=== PATIENT | female | born 1975 | race Caucasian/White ===

== ENCOUNTER 2019-03-11 18:29 | Inpatient (IN) ==
[2019-03-11] MEDS ORDERED: Tdap (Boostrix) Vaccine 0.5 ML SYRINGE IM ONE (19:47)
[2019-03-11 20:06] LABS: Bilirubin,Urine Negative (Negative); Blood,Urine Negative (Negative); Clarity,Urine Cloudy (Clear); Color,Urine Yellow (Yellow); Glucose,Urine (UA) Normal (Normal); Ketones,Urine Negative (Negative); Leukocyte Esterase,Urine Negative (Negative); Nitrite,Urine Negative (Negative); PH,Urine 7.5 pH Units (5.0-8.0); Protein,Urine Trace mg/dL (Neg-Trace); Specific Gravity,Urine 1.026 (1.010-1.025); Urobilinogen,Urine Normal (Normal)
[2019-03-11 20:17] LABS: Amphetamine Screen,Urine Negative ng/mL (Cutoff=1000); Barbiturate Screen,Urine Negative ng/mL (Cutoff=200); Benzodiazepines Screen,Urine Negative ng/mL (Cutoff=200); Cannabinoid Screen,Urine Negative ng/mL (Cutoff = 50); Cocaine Screen,Urine Positive ng/mL (Cutoff= 300); Opiate Screen,Urine Negative ng/mL (Cutoff=300); Phencyclidine Screen,Urine Negative ng/mL (Cutoff=25)
[2019-03-11 20:20] LABS: Bacteria,Urine Moderate per hpf (None-Few); Squamous Epithelial Cell,Urine Moderate per lpf (None-Few); WBC,Urine 0-3 per hpf (0-3)
[2019-03-11 20:44] LABS: Basophils # 0.1 K/mcL (0.0-0.2); Basophils % 0.5 %; Eosinophils # 0.2 K/mcL (0.0-0.6); Eosinophils % 1.3 %; Hematocrit 44.2 % (35.3-44.9); INR 0.9; Immature Granulocytes % 0.4 % (0-4); Lymphocytes # 2.6 K/mcL (0.6-4.6); Lymphocytes % 21.5 %; Mean Corpuscular HGB Conc 33.9 g/dL (31.6-35.5); Mean Corpuscular Hemoglobin 32.7 pg (28.0-33.3); Mean Corpuscular Volume 96.3 fL (83.0-100.0); Monocytes # 0.9 K/mcL (0.0-1.3); Monocytes % 7.6 %; Neutrophils # 8.2 K/mcL (1.6-8.9); Platelet Count 233 K/mcL (140-400); Prothrombin Time 10.4 Seconds (9.4-12.1); Red Blood Count 4.59 M/mcL (3.82-4.97); Red Cell Distribution Width 13.3 % (11.5-14.5); Segmented Neutrophils % 68.7 %; White Blood Count 11.9 K/mcL (4.3-11.1)
[2019-03-11 20:47] LABS: Activated Partial Thrombo Time 30.4 Seconds (26.0-36.0)
[2019-03-11] MEDS: Nicotine 14 MG PATCH.TD24 TD SCH (20:48)
[2019-03-11 20:54] LABS: Acetaminophen < 10 mcg/mL (10-20); Ethanol < 10 mg/dL (Less than 10); Salicylate < 2.5 mg/dL (15.0-30.0)
[2019-03-11 21:38] LABS: Alanine Aminotransferase 14 Units/L (7-52); Albumin 3.8 g/dL (3.5-5.7); Albumin/Globulin Ratio 1.3 (1.1-2.2); Alkaline Phosphatase 56 Units/L (34-104); Aspartate Amino Transferase 20 Units/L (13-39); BUN/Creatinine Ratio 32 (6-26); Bilirubin,Total 0.3 mg/dL (0.3-1.0); Blood Urea Nitrogen 19 mg/dL (6-20); Calcium 8.5 mg/dL (8.6-10.3); Carbon Dioxide 19 mEq/L (23-29); Chloride 107 mEq/L (98-107); Globulin 2.9 g/dL (2.4-3.5); Glucose 134 mg/dL (70-105); Osmolality,Calculated 288 (280-300); Potassium 3.7 mEq/L (3.5-5.1); Sodium 137 mEq/L (136-145); Total Protein 6.7 g/dL (6.4-8.9); eGFR For African Americans > 60 (> 60); eGFR For Non-African Americans > 60 (> 60)
[2019-03-12] MEDS ORDERED: tiZANidine 4 MG TABLET PO ONE (00:12)
[2019-03-12] MEDS ORDERED: Pregabalin 50 MG CAPSULE PO ONE (00:13)
[2019-03-12] MEDS ORDERED: Haloperidol Lactate 5 MG/ML VIAL IM PRN (00:32)
[2019-03-12] MEDS ORDERED: Mag Hydrox/Al Hydrox/Simeth 30 ML UDC PO PRN (00:32)
[2019-03-12] MEDS ORDERED: *HR* LORazepam 2 MG/ML VIAL IM PRN (00:32)
[2019-03-12] MEDS ORDERED: MOM Conc 10 ML UD.LIQ PO PRN (00:32)
[2019-03-12] MEDS ORDERED: *HR* LORazepam 1 MG TABLET PO PRN (00:32)
[2019-03-12] MEDS: Acetaminophen 325 MG TABLET PO PRN ×3 (09:06→19:52)
[2019-03-12] MEDS: Pregabalin 50 MG CAPSULE PO SCH ×2 (09:06→20:45)
[2019-03-12] MEDS: Lisinopril 20 MG TABLET PO SCH (09:06)
[2019-03-12] MEDS: Nicotine 14 MG PATCH.TD24 TD SCH (09:07)
[2019-03-12] MEDS: tiZANidine 4 MG TABLET PO PRN ×2 (12:53→20:46)
[2019-03-12] MEDS: QUEtiapine Fumarate 25 MG TABLET PO PRN (20:46)
[2019-03-12] MEDS: hydrOXYzine pamoate 25 MG CAPSULE PO PRN (20:46)
[2019-03-13] MEDS: Acetaminophen 325 MG TABLET PO PRN ×3 (06:15→18:04)
[2019-03-13] MEDS: Lisinopril 20 MG TABLET PO SCH (08:27)
[2019-03-13] MEDS: Nicotine 14 MG PATCH.TD24 TD SCH (08:30)
[2019-03-13] MEDS: Pregabalin 50 MG CAPSULE PO SCH ×2 (09:20→21:06)
[2019-03-13] MEDS: Nicotine 21 MG PATCH.TD24 TD SCH (09:21)
[2019-03-13] MEDS: hydrOXYzine pamoate 25 MG CAPSULE PO PRN (18:04)
[2019-03-13] MEDS: tiZANidine 4 MG TABLET PO PRN (21:06)
[2019-03-13] MEDS: QUEtiapine Fumarate 25 MG TABLET PO PRN (21:06)
[2019-03-14] MEDS: Pregabalin 50 MG CAPSULE PO SCH (09:09)
[2019-03-14] MEDS: Lisinopril 20 MG TABLET PO SCH (09:09)
[2019-03-14] MEDS: Nicotine 21 MG PATCH.TD24 TD SCH (09:10)
[2019-03-14] MEDS: Acetaminophen 325 MG TABLET PO PRN (09:17)
[2019-03-14 10:03] VITALS: BP 135/86
== END 2019-03-14 12:20 | disposition home or self-care (01) | DRG 751 ==
LOC: EMEROOARM 18:29 → 1ANU 18:29
PROVIDERS: ADMIT Psychiatry & Neurology Psychiatry; ATTEND Psychiatry & Neurology Psychiatry

== ENCOUNTER 2019-04-03 20:06 | Observation (INO) ==
[2019-04-03] MEDS ORDERED: Vancomycin 1,000 MG VIAL IVPB ONE (21:55)
[2019-04-03] MEDS ORDERED: Piperacillin/Tazobactam 3.375 GM in 0.9 % Sodium Chloride Mini Bag 100 ML IVPB ONE (21:55)
[2019-04-03] MEDS ORDERED: Nicotine 21 MG PATCH.TD24 TD SCH (22:00)
[2019-04-03] MEDS ORDERED: 0.9 % Sodium Chloride 250 ML ONE (22:13)
[2019-04-03 22:44] LABS: Basophils % 0.5 %; Eosinophils # 0.3 K/mcL (0.0-0.6); Eosinophils % 3.5 %; Hematocrit 37.3 % (35.3-44.9); Immature Granulocytes % 1.2 % (0-4); Lymphocytes # 2.1 K/mcL (0.6-4.6); Lymphocytes % 28.7 %; Mean Corpuscular HGB Conc 32.2 g/dL (31.6-35.5); Mean Corpuscular Hemoglobin 31.5 pg (28.0-33.3); Mean Corpuscular Volume 97.9 fL (83.0-100.0); Monocytes # 0.5 K/mcL (0.0-1.3); Monocytes % 6.3 %; Neutrophils # 4.4 K/mcL (1.6-8.9); Platelet Count 275 K/mcL (140-400); Red Blood Count 3.81 M/mcL (3.82-4.97); Red Cell Distribution Width 13.6 % (11.5-14.5); Segmented Neutrophils % 59.8 %; White Blood Count 7.4 K/mcL (4.3-11.1)
[2019-04-03 23:07] LABS: Alanine Aminotransferase 13 Units/L (7-52); Alkaline Phosphatase 51 Units/L (34-104); Aspartate Amino Transferase 13 Units/L (13-39); BUN/Creatinine Ratio 28 (6-26); Bilirubin,Total 0.1 mg/dL (0.3-1.0); Blood Urea Nitrogen 17 mg/dL (6-20); C-Reactive Protein 18 mg/L (Less than 10); Calcium 8.4 mg/dL (8.6-10.3); Carbon Dioxide 26 mEq/L (23-29); Chloride 107 mEq/L (98-107); Globulin 3.1 g/dL (2.4-3.5); Glucose 176 mg/dL (70-105); Osmolality,Calculated 292 (280-300); Potassium 3.5 mEq/L (3.5-5.1); Sodium 138 mEq/L (136-145); Total Protein 6.1 g/dL (6.4-8.9); eGFR For African Americans > 60 (> 60); eGFR For Non-African Americans > 60 (> 60)
[2019-04-04] MEDS ORDERED: Isovue-370 500 ML BOTTLE IVP ONE (00:18)
[2019-04-04] MEDS ORDERED: Ondansetron 4 MG/2 ML VIAL IVP PRN ×2 (00:58→17:54)
[2019-04-04] MEDS ORDERED: Naloxone 0.4 MG/ML INJ IVP PRN ×2 (00:58→17:54)
[2019-04-04] MEDS ORDERED: 0.9 % Sodium Chloride 1,000 ML IVC SCH ×2 (01:00→17:54)
[2019-04-04] MEDS ORDERED: tiZANidine 4 MG TABLET PO PRN ×2 (01:40→17:54)
[2019-04-04] MEDS: Acetaminophen 325 MG TABLET PO PRN ×2 (01:46→11:07)
[2019-04-04] MEDS ORDERED: Vancomycin 1,750 MG in 0.9 % Sodium Chloride 250 ML IVPB SCH (02:00)
[2019-04-04 02:05] LABS: Basophils # 0.1 K/mcL (0.0-0.2); Basophils % 0.7 %; Eosinophils # 0.3 K/mcL (0.0-0.6); Eosinophils % 3.7 %; Hematocrit 38.6 % (35.3-44.9); Hemoglobin 12.1 g/dL (11.5-15.4); Immature Granulocytes % 1.3 % (0-4); Lymphocytes # 2.5 K/mcL (0.6-4.6); Lymphocytes % 35.1 %; Mean Corpuscular HGB Conc 31.3 g/dL (31.6-35.5); Mean Corpuscular Hemoglobin 31.1 pg (28.0-33.3); Mean Corpuscular Volume 99.2 fL (83.0-100.0); Mean Platelet Volume 10.3 fL (9.4-12.4); Monocytes # 0.5 K/mcL (0.0-1.3); Monocytes % 7.7 %; Neutrophils # 3.6 K/mcL (1.6-8.9); Platelet Count 278 K/mcL (140-400); Red Blood Count 3.89 M/mcL (3.82-4.97); Red Cell Distribution Width 13.7 % (11.5-14.5); Segmented Neutrophils % 51.5 %
[2019-04-04] MEDS: Pregabalin 50 MG CAPSULE PO SCH ×2 (02:10→08:56)
[2019-04-04 02:25] LABS: BUN/Creatinine Ratio 29 (6-26); Blood Urea Nitrogen 17 mg/dL (6-20); Calcium 8.1 mg/dL (8.6-10.3); Carbon Dioxide 23 mEq/L (23-29); Chloride 108 mEq/L (98-107); Glucose 143 mg/dL (70-105); Osmolality,Calculated 286 (280-300); Potassium 3.5 mEq/L (3.5-5.1); Sodium 136 mEq/L (136-145); eGFR For African Americans > 60 (> 60); eGFR For Non-African Americans > 60 (> 60)
[2019-04-04 02:51] LABS: INR 0.9; Prothrombin Time 10.5 Seconds (9.4-12.1)
[2019-04-04] MEDS: *HR* Heparin 5,000 UNIT/ML VIAL SQ SCH ×2 (04:06→13:44)
[2019-04-04] MEDS: Ipratropium/Albuterol Neb 3 ML IH SCH ×4 (05:39→16:13)
[2019-04-04] MEDS ORDERED: *HR* LORazepam 2 MG/ML VIAL IVP PRN ×6 (10:09→17:54)
[2019-04-04] MEDS ORDERED: *HR* Propofol 200 MG/20 ML VIAL IVP ONE (13:29)
[2019-04-04] MEDS ORDERED: *HR* Midazolam HCl 2 MG/2 ML VIAL ONE (13:35)
[2019-04-04] MEDS ORDERED: *HR* FentaNYL (PF) 100 MCG/2 ML VIAL ONE (13:36)
[2019-04-04] MEDS ORDERED: Lidocaine -MPF 2% 2 ML VIAL ONE (13:38)
[2019-04-04] MEDS ORDERED: Dexamethasone 4 MG/ML VIAL ONE (13:38)
[2019-04-04] MEDS ORDERED: *HR* Succinylcholine 200 MG/10 ML VIAL IVP ONE (13:38)
[2019-04-04] MEDS ORDERED: Ondansetron 4 MG/2 ML VIAL ONE (13:38)
[2019-04-04] MEDS ORDERED: Bupivacaine/EPI 1:200k 0.5%PF 10 ML VIAL ONE (13:50)
[2019-04-04] MEDS ORDERED: *HR* Labetalol 20 MG/4 ML SYRINGE IVP PRN (14:55)
[2019-04-04] MEDS ORDERED: *HR* HYDROmorphone 2 MG TABLET PO PRN (14:55)
[2019-04-04] MEDS ORDERED: *HR* Promethazine 25 MG/ML VIAL IVP PRN (14:55)
[2019-04-04] MEDS ORDERED: *HR* OxyCODONE Immed Rel 5 MG TABLET PO PRN (14:55)
[2019-04-04] MEDS ORDERED: *HR* PHENYLEPHRINE 1,000 MCG/10 ML SYRINGE IVP ONE (15:08)
[2019-04-04] MEDS ORDERED: *HR* HYDROMORPHONE 2 MG/ML VIAL ONE (15:16)
[2019-04-04] MEDS: *HR* HYDROmorphone (PF) 1 MG/ML SYRINGE IVP PRN ×2 (15:55→16:05)
[2019-04-04] MEDS ORDERED: Acetaminophen 325 MG TABLET PO PRN (17:54)
[2019-04-04 19:39] VITALS: BP 115/75
[2019-04-04] MEDS ORDERED: Nicotine 21 MG PATCH.TD24 TD SCH (20:00)
[2019-04-04] MEDS ORDERED: Ipratropium/Albuterol Neb 3 ML IH SCH (20:00)
[2019-04-04] MEDS ORDERED: Aminoglycoside Consult 1 EACH MC ONE (20:48)
[2019-04-04] MEDS ORDERED: Pregabalin 50 MG CAPSULE PO SCH (21:00)
[2019-04-04] MEDS ORDERED: *HR* Heparin 5,000 UNIT/ML VIAL SQ SCH (22:00)
== END 2019-04-04 20:49 | disposition left against medical advice (07) ==
LOC: 3NENU 20:06 → EMEROOARM 20:06 → SUATTDRO 04-04 00:36 → 3NENU 04-04 01:08
PROVIDERS: ADMIT Internal Medicine; ATTEND Internal Medicine